=== PATIENT | male | born 1975 | race Caucasian/White ===

== ENCOUNTER 2017-08-27 12:46 | Day surgery (SDC) | payer MEDICAID ==
[~2017-08-27 12:46] MED LIST: DOXYCYCLINE150 M1 PO; LISINOPRIL 20MG20 MG PO; PRILOSEC20 MG PO; PROTONIX 40MG T40 MG PO
--- NOTE | 2017-08-27 14:46 | Operative Note ---
Upper GI Endoscopy Procedure date: 08/27/17 Date of : 75 Procedure:Upper GI Endoscopy Esophagogastroduodenoscopy with cold biopsies Indications: Mr. Gonzalez is a 42-year-old gentleman who has had dyspepsia with midepigastric abdominal pain and discomfort for one month. This is improved. He was also having heartburn and reflux which is now controlled with Protonix. He reports bloating, gassiness, belching and early satiety. He reports no nausea. He does state that he has the feeling of incomplete bowel evacuation. He reports no melena, hematochezia or weight loss. He did have an upper endoscopy 7 or 8 years ago and was told that he had a hiatal hernia. Performing Provider: Hayes Taylor MD Referring Provider: Shasta Walters PA-C Sedation: Fentanyl 150 mg IV/Versed 7 mg IV Procedure: Prior to the procedure, a history and physical exam was performed, and patients medications and allergies were reviewed. The risks and benefits of the procedure and the sedation options and risks were discussed with the patient. All questions were answered and informed consent was obtained. The patient was brought to the procedure room. Patient identification and proposed procedure were verified by the physician and the nurse. The patient was placed in a left lateral decubitus position and the scope was passed under direct vision. Throughout the procedure, the patient's blood pressure, pulse, and oxygen saturations were monitored continuously. The endoscope was introduced through the mouth, and advanced to the second part of duodenum. The upper GI endoscopy was accomplished without difficulty. The patient tolerated the procedure well. Findings: The scope was passed directly into the upper esophagus and advanced to the third portion of the duodenum. The post bulbar duodenum and duodenal bulb were normal with normal mucosa and conniventes. The scope was withdrawn through a normal duodenal bulb and pylorus into the stomach. There was some minor bile reflux with mild linear erythema of the antrum and some mild pylorospasm. The remainder of the antrum, body and fundus of the stomach were grossly normal. Upon retroflexion there was a very small 1-2 cm sliding hiatal hernia. 2 biopsies were taken in the antrum and along the lesser curvature for histology. The scope was then withdrawn into the esophagus. There were at least 2 tongues of salmon- colored mucosa that appeared to be tongues of Perla's esophagus. Narrow band imaging was utilized to do directed biopsies and there was one focal area at 6: 00 orientation that appeared to have some glandular atypia on NBI that was biopsied. There was no evidence of reflux esophagitis or strictures. The remainder of the esophageal mucosa was normal. Immediate complications: None EBL (ml): 0 Impression: 1. Nonerosive gastroesophageal reflux disease with small hiatal hernia 2. 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 Mild linear reactive gastritis with pylorospasm Recommendations: I do feel that the patient has functional dyspepsia and associated obstipation. We will discuss additional dietary measures, fiber bowel regimen and treatment options. I will follow up the biopsies. If the patient does have Perla's esophagus, I will plan surveillance endoscopy according to whether there is evidence of any dysplasia or no dysplasia. at [id number]
--- NOTE | 2017-08-27 15:05 | Operative Note ---
Colonoscopy ([facility]) Procedure date: 08/27/17 Date of : 75 Procedure:Colonoscopy Colonoscopy with cold snare polypectomy Indications: Mr. Gonzalez is a 42-year-old gentleman who is here for diagnostic panendoscopy. He has had midepigastric abdominal pain, bloating and dyspepsia. He also has obstipation/incomplete bowel evacuation. He reports no rectal bleeding, weight loss or family history of colon cancer. He did have a colonoscopy 7-8 years ago at which time he states that polyps were removed. Performing Provider: Hayes Taylor MD Referrring Provider: Shasta Walters PA-C Sedation: Fentanyl 200 mg IV/Versed 9 mg IV (combined sedation for both EGD/colonoscopy). Procedure: Prior to the procedure, a history and physical exam was performed, and patient medications and allergies were reviewed. The risks and benefits of the procedure and the sedation options and risks were discussed with the patient. All questions were answered and informed consent was obtained. Patient identification and proposed procedure were verified by the physician and the nurse. The patient was placed in a left lateral decubitus position. Throughout the procedure, the patient's blood pressure, pulse, and oxygen saturations were monitored continuously. Findings: On digital rectal examination there was normal rectal tone. There were no external hemorrhoids. The prostate was 2+, moderately firm but symmetric without nodules. The colonoscope was introduced through the anal canal to the rectum and advanced to the cecum. The ileocecal valve and appendiceal orifice were identified. The scope was advanced a short distance into the ileum which appeared grossly normal. The scope was then withdrawn into the colon. There was a single 5 mm polyp in the cecum removed via cold snare polypectomy. The remaining cecum, ascending and transverse colon and mucosa were grossly normal. There were very mildly scattered diverticuli throughout the descending and sigmoid colon (LEFT colon). The rectum itself was normal. Upon retroflexion within the rectum there were grade 1 internal hemorrhoids. Impressions: 1. Diminutive cecal polyp 2. Mild left-sided diverticulosis 3. Grade 1 internal hemorrhoids Recommendations: I will follow up the polyp histology and recommend repeat surveillance colonoscopy in 5 years if the polyp is adenomatous. I would encourage a fiber bowel regimen on a long-term daily maintenance basis. Complications: None EBL (ml): 0 at 1509
[2017-08-27 16:08] VITALS: BP 120/56
== END 2017-08-27 15:53 | disposition home or self-care (01) ==
LOC: SDC 12:46
PROVIDERS: Internal Medicine Gastroenterology
PROC: 0DB58ZX Excision of Esophagus, Via Natural or Artificial Opening Endoscopic, Diagnostic (ICD-10-PCS; 2017-08-27)
PROC: 0DB68ZX Excision of Stomach, Via Natural or Artificial Opening Endoscopic, Diagnostic (ICD-10-PCS; 2017-08-27)
PROC: 0DBH8ZX Excision of Cecum, Via Natural or Artificial Opening Endoscopic, Diagnostic (ICD-10-PCS; principal; 2017-08-27 14:00)
DX: D12.0 Benign neoplasm of cecum (principal); K57.30 Diverticulosis of large intestine without perforation or abscess without bleeding; K64.0 First degree hemorrhoids; C15.9 Malignant neoplasm of esophagus, unspecified; K21.9 Gastro-esophageal reflux disease without esophagitis; K44.9 Diaphragmatic hernia without obstruction or gangrene; K29.60 Other gastritis without bleeding